=== PATIENT | male | born 1975 | race Caucasian/White ===

== ENCOUNTER 2020-12-06 14:41 | Emergency (ER) | payer OTHER ==
[~2020-12-06 14:41] MED LIST: BACTROBAN OINT22 GM EXT; CLEOCIN HCL300 MG PO; IBUPROFEN600 MG PO; IBUPROFEN800 MG PO; INDOCIN CAP 2525 MG PO; KLONOPIN2 MG PO; SUBOXONE 8 MG-1 EACH SL
[2020-12-06 18:26] LABS: HEMOGLOBIN 15.7 gm/dl (14.0-17.5); RED BLOOD COUNT 4.8 M/UL (4.20-5.50); WHITE BLOOD COUNT 10.1 K/UL (4.5-11.0)
[2020-12-06 18:37] LABS: BUN/CREATININE RATIO 12 (0-10)
[2020-12-06] MEDS ORDERED: NASONEX17 GM (20:13)
[2020-12-06] MEDS ORDERED: SALINE NOSE SPR45 ML (20:13)
[2020-12-06] MEDS ORDERED: MEDROL DOSEPAK 24 MG PO (20:13)
[2020-12-06] MEDS ORDERED: FLAGYL500 MG PO (20:13)
[2020-12-06] MEDS ORDERED: VIBRAMYCIN 100100 MG PO (20:13)
[2020-12-06] MEDS ORDERED: IBUPROFEN800 MG PO (20:13)
== END 2020-12-06 20:25 | disposition home or self-care (01) ==
LOC: ER1 14:41
PROVIDERS: Emergency Medicine
DX: J32.9 Chronic sinusitis, unspecified (principal); Z88.0 Allergy status to penicillin; F17.200 Nicotine dependence, unspecified, uncomplicated
CPT/HCPCS: 70487; 80053; 85025; 85652; 86140; 87040; 96374; 99284; Q9967

== ENCOUNTER → 2021-02-25 | Outpatient (CLI) | payer OTHER ==
[~2021-02-25] MED LIST changes: +FLAGYL500 MG PO; +MEDROL DOSEPAK 24 MG PO; +NASONEX17 GM; +SALINE NOSE SPR45 ML; +VIBRAMYCIN 100100 MG PO
== END ==
LOC: US 13:14
DX: N63.10 Unspecified lump in the right breast, unspecified quadrant (principal)
CPT/HCPCS: 76641-RT; 77065

== ENCOUNTER → 2021-03-19 | Outpatient (CLI) | payer OTHER | LOC: US 09:03 | DX: N63.41 Unspecified lump in right breast, subareolar (principal); N62 Hypertrophy of breast ==